=== PATIENT | male | born 1975 | race Caucasian/White ===

== ENCOUNTER 2018-09-11 13:38 | Emergency (ER) | payer OTHER ==
--- OUTSIDE RECORDS SUMMARY | 2018-09-11 13:45 | XMS REPORT ---
:1975 [facility] Team Providers Name Role Phone Sherri Zendejas Provider Role Unavailable Allergies, Adverse Reactions, Alerts Substance Reaction Event Type N.K.D.A. 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 Problem Benign essential HTN I10 Active Problem Erectile dysfunction, unspecified N52.9 Active erectile dysfunction type Problem Malaise and fatigue R53.81 Active Problem Seizure R56.9 Active Problem Insomnia G47.00 Active Problem Depression F32.9 Active Problem Decreased testosterone level in R79.89 Active male Problem Mixed hyperlipidemia E78.2 Active Assessment Fatigue, unspecified type R53.83 Active Problem Chronic sinusitis J32.9 Active Assessment Low testosterone R79.89 Active Problem Decreased libido R68.82 Active Medications Medication Code Code Instructions Start End Status Dosage System Date Date Trazodone HCl ND 17063959166 100 MG Orally Active 1 tablet Once a day at bedtime Pravastatin Sodium [facility] 67324432220 40 MG Orally Active 1 tablet Once a day Aspir-81 [facility] 32172679395 81 MG Orally Active 1 tablet Once a day Escitalopram Oxalate [facility] 08841299730 20MG Active TAKE ONE TABLET BY MOUTH ONCE DAILY Lexapro [facility] 90836584248 20 MG Orally Active 0.5 Once a day tablet Epitol [facility] 10845724360 200 MG Orally Active 1 tablet Twice a day Lamictal ND 62336269315 100 MG Orally Active 2 tablets Twice a day Lamotrigine [facility] 90083414633 100MG Active TAKE ONE TABLET BY MOUTH ONCE DAILY Hydrochlorothiazide ND 33516292546 25 MG Orally Active 1 tablet Once a day in the morning Metoprolol Tartrate ND 20274112187 25MG Active TAKE ONE TABLET BY MOUTH TWICE DAILY Metoprolol Tartrate [facility] 00040277699 25 MG Orally Active 1 tablet Twice a day with food Carbamazepine [facility] 92598711965 200 MG Orally Active 1 tablet Twice a day Results Name Result Date Reference Range Unit Abnormality Flag URINALYSIS AUTO W/O SCOPE (59754) ----JOSE neg 20180102 ----NIT neg 20180102 ----PROTEIN neg 20180102 ----pH 5.5 20180102 ----BLO neg 20180102 ----GLUCOSE neg 20180102 ----BILIRUBIN neg 20180102 ----KETONES 1+ 20180102 ----SPECIFIC GRAVITY 1.025 20180102 PVR ----PVR 17 20180102 Summary Purpose eClinicalWorks Submission
--- OUTSIDE RECORDS SUMMARY | 2018-09-11 13:45 | XMS REPORT ---
:1975 Author Organization eClinicalWorks Care Team Providers Name Role Phone Usama Curiel Provider Role Unavailable Allergies, Adverse Reactions, Alerts Substance Reaction Event Type N.K.D.A. 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 Problem Benign essential HTN I10 Active Assessment Seizure R56.9 Active Assessment Depression F32.9 Active Problem Erectile dysfunction, unspecified N52.9 Active erectile dysfunction type Assessment Erectile dysfunction N52.9 Active Problem Malaise and fatigue R53.81 Active Problem Seizure R56.9 Active Problem Insomnia G47.00 Active Problem Depression F32.9 Active Assessment Obstructive sleep apnea G47.33 Active Assessment Decreased libido R68.82 Active Assessment Trigeminal neuralgia G50.0 Active Assessment 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 Problem Decreased testosterone level in R79.89 Active male Problem Mixed hyperlipidemia E78.2 Active Assessment Decreased testosterone level in R79.89 Active male Assessment Benign essential HTN I10 Active Medications Medication Code Code Instructions Start End Status Dosage System Date Date Trazodone HCl ND 38131566086 100 MG Orally Active 1 tablet Once a day at bedtime Lexapro ND 20570565192 20 MG Orally Active 0.5 Once a day tablet Epitol [facility] 88683450497 200 MG Orally Active 1 tablet Twice a day Pravastatin Sodium ND 51055178843 40 MG Orally Active 1 tablet Once a day Escitalopram Oxalate [facility] 64884201942 20MG Active TAKE ONE TABLET BY MOUTH ONCE DAILY Metoprolol Tartrate ND 15417544211 25 MG Orally Active 1 tablet Twice a day with food Hydrochlorothiazide ND 74734254150 25 MG Orally Active 1 tablet Once a day in the morning Lamictal [facility] 30679166443 100 MG Orally Active 2 tablets Twice a day Carbamazepine [facility] 80103575497 200 MG Orally Active 1 tablet Twice a day -81 [facility] 71957577682 81 MG Orally Active 1 tablet Once a day Lamotrigine [facility] 51980118710 100MG Active TAKE ONE TABLET BY MOUTH ONCE DAILY Metoprolol Tartrate [facility] 47958461028 25MG Active TAKE ONE TABLET BY MOUTH TWICE DAILY Results No Known Results Summary Purpose eClinicalWorks Submission
--- OUTSIDE RECORDS SUMMARY | 2018-09-11 13:45 | XMS REPORT | Clinical Summary ---
:1975 Author Organization [facility] Address [address] [place] [address] Care Team Providers Name Role Phone Usama Curiel Primary Care Provider Allergies No Known Allergies Medications Medication Sig Dispensed Refills Start Date End Date Status hydroCHLOROthiazide Take 1 0 07/19/2016 Active (HYDRODIURIL) 25 MG tablet tablet by mouth daily. escitalopram (LEXAPRO) 20 Take 1 0 09/04/2016 Active MG tablet tablet by mouth daily. metoprolol tartrate Take 1 0 07/19/2016 Active (LOPRESSOR) 25 mg tablet tablet by mouth 2 (two) times a day. aspirin (ECOTRIN) 81 MG Take 81 mg 0 Active enteric coated tablet by mouth daily. lamoTRIgine (LaMICtal) 100 Take 100 mg 0 Active MG tablet by mouth daily. carBAMazepine (TEGretol) Take 200 mg 0 Active 200 mg tablet by mouth as needed. pravastatin (PRAVACHOL) 40 Take 40 mg 0 Active MG tablet by mouth daily. traZODone (DESYREL) 100 MG Take 1 90 tablet 3 03/03/2017 03/03/2018 tablet tablet (100 mg total) by mouth nightly. Active Problems Problem Noted Date Essential hypertension 09/11/2016 Pure hypercholesterolemia 09/11/2016 Mild cognitive impairment 09/11/2016 Trigeminal neuralgia 09/11/2016 H/O herpes encephalitis 09/05/2016 Seizure disorder 09/05/2016 Depressive disorder 09/05/2016 Cognitive disorder 09/05/2016 Encounters Date Type Specialty Care Team Description 03/19/2018 Office Visit Neurology Jared Carlos MD H/O herpes encephalitis (Primary Dx); Mild cognitive impairment; Seizure disorder; Trigeminal neuralgia; Depressive disorder 09/10/2017 Office Visit Neurology Jared Carlos MD H/O herpes encephalitis (Primary Dx); Mild cognitive impairment; Seizure disorder; Trigeminal neuralgia; Depressive disorder after 09/10/2017 Family History Medical History Relation Name Comments Hyperlipidemia Father Hypertension Father Lung cancer Father Glaucoma Mother Hypertension Mother Irritable bowel syndrome Mother Relation Name Status Comments Father Alive Mother Alive Social History Tobacco Use Types Packs/Day Years Used Date Former Smoker Cigarettes Smokeless Tobacco: Current User Snuff Comments: social smoker Alcohol Use Drinks/Week oz/Week Comments Yes 2 drinks / month Sex Assigned at Date Recorded Not on file Job Start Date Occupation Industry Not on file Not on file Not on file Travel History Travel Start Travel End No recent travel history available. Last Filed Vital Signs Vital Sign Reading Time Taken Blood Pressure 129/85 03/19/2018 1:15 PM CDT Pulse 59 03/19/2018 1:15 PM CDT Temperature - - Respiratory Rate - - Oxygen Saturation - - Inhaled Oxygen Concentration - - Weight 135 kg (297 lb 9.6 oz) 03/19/2018 1:15 PM CDT Height 182.9 cm (6') 03/19/2018 1:15 PM CDT Body Mass Index 40.36 03/19/2018 1:15 PM CDT Plan of Treatment Date Type Specialty Care Team Description 09/24/2018 Office Visit Neurology Jared Carlos MD [address] [address] Health Maintenance Due Date Last Done Comments INFLUENZA VACCINE 02/25/2018 Results Not on fileafter 09/10/2017 Insurance Payer Benefit Plan / Group Subscriber ID Type Phone Address [facility] xxxxxxxxx HMO ([place]) [place] [address] Advance Directives Patient has advance care planning documents on file. For more information, please contact:[place] [address]
--- OUTSIDE RECORDS SUMMARY | 2018-09-11 13:45 | XMS REPORT ---
:1975 [facility] Care Team Providers Name Role Phone Sherri [...] G47.00 Active Problem Depression F32.9 Active Assessment Fatigue, unspecified type R53.83 Active Problem Decreased testosterone level in R79.89 Active male Problem Mixed hyperlipidemia E78.2 Active Assessment Low testosterone R79.89 Active Problem Chronic sinusitis J32.9 Active Problem Decreased libido R68.82 Active Medications Medication Code Code Instructions Start End Status Dosage System Date Date Epitol [facility] 80776355077 200 MG Orally Active 1 tablet Twice a day Trazodone HCl [facility] 93349402844 100 MG Orally Active 1 tablet Once a day at bedtime Hydrochlorothiazide ND 07743257713 25 MG Orally Active 1 tablet Once a day in the morning Pravastatin Sodium [facility] 13572583285 40 MG Orally Active 1 tablet Once a day Lexapro [facility] 63633888582 20 MG Orally Active 0.5 Once a day tablet Lamictal ND 98628823572 100 MG Orally Active 2 tablets Twice a day Lamotrigine [facility] 48089630511 100MG Active TAKE ONE TABLET BY MOUTH ONCE DAILY Escitalopram Oxalate [facility] 38672734813 20MG Active TAKE ONE TABLET BY MOUTH ONCE DAILY Aspir-81 [facility] 44367777352 81 MG Orally Active 1 tablet Once a day Metoprolol Tartrate ND 45050916448 25MG Active TAKE ONE TABLET BY MOUTH TWICE DAILY Carbamazepine [facility] 07574591066 200 MG Orally Active 1 tablet Twice a day Results No Known Results Summary Purpose eClinicalWorks Submission
--- OUTSIDE RECORDS SUMMARY | 2018-09-11 13:45 | XMS REPORT ---
:1975 [facility] Care Team Providers Name Role Phone [...] Start End Status Dosage System Date Date Pravastatin Sodium ND 83534760440 40 MG Orally Active 1 tablet Once a day Epitol [facility] 64367402285 200 MG Orally Active 1 tablet Twice a day Hydrochlorothiazide ND 51643351294 25 MG Orally Active 1 tablet Once a day in the morning Lamotrigine [facility] 06951587398 100MG Active TAKE ONE TABLET BY MOUTH ONCE DAILY Lamictal ND 19251796056 100 MG Orally Active 2 tablets Twice a day Carbamazepine ND 02146823887 200 MG Orally Active 1 tablet Twice a day Metoprolol Tartrate ND 95156494788 25MG Active TAKE ONE TABLET BY MOUTH TWICE DAILY Aspir-81 [facility] 73215195383 81 MG Orally Active 1 tablet Once a day Escitalopram Oxalate [facility] 78686972559 20MG Active TAKE ONE TABLET BY MOUTH ONCE DAILY Lexapro ND 68581714429 20 MG Orally Active 0.5 Once a day tablet Trazodone HCl ND 61647707053 100 MG Orally Active 1 tablet Once a day at bedtime Results No Known Results Summary Purpose eClinicalWorks Submission
--- OUTSIDE RECORDS SUMMARY | 2018-09-11 13:46 | XMS REPORT ---
:1975 Author Organization eClinicalWorks Care Team Providers Name Role Phone MariposaSherri Provider Role Unavailable Allergies, Adverse Reactions, Alerts Substance Reaction Event Type N.K.D.A. 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 Problem Depression F32.9 Active Problem Malaise and fatigue R53.81 Active Problem Benign essential HTN I10 Active Problem Insomnia G47.00 Active Assessment Fatigue, unspecified type R53.83 Active Assessment Low testosterone R79.89 Active Problem Mixed hyperlipidemia E78.2 Active Problem Chronic sinusitis J32.9 Active Problem Decreased libido R68.82 Active Problem Decreased testosterone level in R79.89 Active male Problem Trigeminal neuralgia G50.0 Active Medications Medication Code Code Instructions Start End Status Dosage System Date Date Trazodone HCl [facility] 49046325027 100 MG Orally Active 1 tablet Once a day at bedtime Lexapro [facility] 71487078702 20 MG Orally Active 0.5 Once a day tablet Epitol [facility] 29298590075 200 MG Orally Active 1 tablet Twice a day Hydrochlorothiazide [facility] 56039135020 25 MG Orally Active 1 tablet Once a day in the morning Pravastatin Sodium [facility] 00704871499 40 MG Orally Active 1 tablet Once a day Hydrochlorothiazide [facility] 77321092459 25 MG Orally Active 1 tablet Once a day in the morning Aspir-81 [facility] 04683466415 81 MG Orally Active 1 tablet Once a day Escitalopram Oxalate [facility] 42219647951 20MG Active TAKE ONE TABLET BY MOUTH ONCE DAILY Lamictal [facility] 86519677433 100 MG Orally Active 1 tablet Once a day Carbamazepine [facility] 79905307122 200 MG Orally Active 1 tablet Twice a day Metoprolol Tartrate [facility] 76845928425 25 MG Orally Active 1 tablet Twice a day with food Results No Known Results Summary Purpose eClinicalWorks Submission
--- OUTSIDE RECORDS SUMMARY | 2018-09-11 13:46 | XMS REPORT ---
:1975 Author Organization eClinicalWorks Care Team Providers Name Role Phone CurielGerh Provider Role Unavailable Allergies, Adverse Reactions, Alerts Substance Reaction Event Type N.K.D.A. 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 Assessment Mixed hyperlipidemia E78.2 Active Assessment Insomnia G47.00 Active Problem 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 Assessment Trigeminal neuralgia G50.0 Active Problem Depression F32.9 Active Problem Malaise and fatigue R53.81 Active Problem Benign essential HTN I10 Active Problem Insomnia G47.00 Active Assessment Obstructive sleep apnea G47.33 Active Assessment Benign essential HTN I10 Active Assessment Depression F32.9 Active Assessment 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 Problem Mixed hyperlipidemia E78.2 Active Problem Chronic sinusitis J32.9 Active Problem Decreased testosterone level in R79.89 Active male Medications Medication Code Code Instructions Start End Status Dosage System Date Date Lamotrigine ND 03906992864 100MG Active TAKE ONE TABLET BY MOUTH ONCE DAILY Trazodone HCl ND 53904597705 100 MG Orally Active 1 tablet Once a day at bedtime Hydrochlorothiazide ND 10693829893 25 MG Orally Active 1 tablet Once a day in the morning Pravastatin Sodium ND 19987697200 40 MG Orally Active 1 tablet Once a day Metoprolol Tartrate ND 66093631673 25 MG Orally Active 1 tablet Twice a day with food Escitalopram Oxalate ND 54052003234 20MG Active TAKE ONE TABLET BY MOUTH ONCE DAILY Aspir-81 [facility] 18787439684 81 MG Orally Active 1 tablet Once a day Metoprolol Tartrate [facility] 01188847137 25MG Active TAKE ONE TABLET BY MOUTH TWICE DAILY Carbamazepine [facility] 74134450319 200 MG Orally Active 1 tablet Twice a day Lexapro [facility] 87674114544 20 MG Orally Active 0.5 Once a day tablet Epitol [facility] 84282313540 200 MG Orally Active 1 tablet Twice a day Hydrochlorothiazide [facility] 13021089433 25 MG Orally Active 1 tablet Once a day in the morning Lamictal [facility] 97752208845 100 MG Orally Active 2 tablets Twice a day Results No Known Results Summary Purpose eClinicalWorks Submission
--- OUTSIDE RECORDS SUMMARY | 2018-09-11 13:46 | XMS REPORT ---
:1975 Author Organization eClinicalWorks Care Team Providers Name Role Phone Usama Curiel Provider Role Unavailable Allergies No Known Allergies Problems Problem Type Condition Code Onset Dates [...] HTN I10 Active Problem Insomnia G47.00 Active Problem Mixed hyperlipidemia E78.2 Active Problem Chronic sinusitis J32.9 Active Problem Decreased libido R68.82 Active Problem Decreased testosterone level in R79.89 Active male Problem Trigeminal neuralgia G50.0 Active Medications Medication Code Code Instructions Start End Status Dosage System Date Date Carbamazepine [facility] 49601382088 200 MG Orally Active 1 tablet Twice a day Lamotrigine [facility] 71193737863 100MG Active TAKE ONE TABLET BY MOUTH ONCE DAILY Hydrochlorothiazide [facility] 61684506514 25 MG Orally Active 1 tablet Once a day in the morning Pravastatin Sodium [facility] 91751142874 40 MG Orally Active 1 tablet Once a day Epitol [facility] 74427850182 200 MG Orally Active 1 tablet Twice a day Lexapro [facility] 59967881404 20 MG Orally Active 0.5 Once a day tablet Lamictal [facility] [address]-82 100 MG Orally Active 1 tablet Once a day Metoprolol Tartrate ND 05441671837 25 MG Orally Active 1 tablet Twice a day with food Escitalopram Oxalate [facility] 03928333208 20MG Active TAKE ONE TABLET BY MOUTH ONCE DAILY Hydrochlorothiazide [facility] 46321022792 25 MG Orally Active 1 tablet Once a day in the morning Trazodone HCl ND 83278791999 100 MG Orally Active 1 tablet Once a day at bedtime [facility] 14983452153 81 MG Orally Active 1 tablet Once a day Metoprolol Tartrate [facility] 34997254545 25MG Active TAKE ONE TABLET BY MOUTH TWICE DAILY Results No Known Results Summary Purpose eClinicalWorks Submission
--- NOTE | 2018-09-11 15:53 | EDPHYS ---
Physician Documentation [facility] Name: David Baker Age: 43 yrs Sex: Male : 1975 Arrival Date: 09/11/2018 Time: 13:39 Bed 11 Private MD: [facility] ED Physician Ben Marcum HPI: 09/11 15:50 This 43 yrs old Male presents to ER via Ambulatory with complaints of Right pm1 Ankle Injury. 15:50 The patient presents with Pain to Achilles area. The complaints affect the right pm1 Achilles. Onset: The symptoms/episode began/occurred 2 day(s) ago. Context: The problem was sustained outdoors, resulted from playing - running with children, The patient can fully bear weight on the affected extremity. the patient is able to ambulate. Associated signs and symptoms: Pertinent positives: swelling, Pertinent negatives: calf tenderness, fever, numbness, tingling, warmth. Modifying factors: The symptoms are alleviated by nothing, the symptoms are aggravated by weight bearing, movement. Severity of symptoms: in the emergency department the symptoms are unchanged. The patient has not experienced similar symptoms in the past. The patient has not recently seen a physician. 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 ROS: 15:50 Constitutional: Negative for fever, chills, and weight loss, Eyes: Negative for injury, pm1 pain, redness, and discharge, ENT: Negative for injury, pain, and discharge, Neck: Negative for injury, pain, and swelling, Cardiovascular: Negative for chest pain, palpitations, and edema, Respiratory: Negative for shortness of breath, cough, wheezing, and pleuritic chest pain, Abdomen/GI: Negative for abdominal pain, nausea, vomiting, diarrhea, and constipation, Back: Negative for injury and pain, : Negative for injury, bleeding, discharge, and swelling. 15:50 Skin: Negative for injury, rash, and discoloration, Neuro: Negative for headache, weakness, numbness, tingling, and seizure. 15:50 MS/extremity: Positive for pain, of the right Achilles, Negative for decreased range of motion, deformity. Exam: 15:50 Constitutional: This is a well developed, well nourished patient who is awake, alert, pm1 and in no acute distress. Head/Face: Normocephalic, atraumatic. Chest/axilla: Normal chest wall appearance and motion. Nontender with no deformity. No lesions are appreciated. Cardiovascular: Regular rate and rhythm with a normal S1 and S2. No gallops, murmurs, or rubs. Normal PMI, no JVD. No pulse deficits. Respiratory: Lungs have equal breath sounds bilaterally, clear to auscultation and percussion. No rales, rhonchi or wheezes noted. No increased work of breathing, no retractions or nasal flaring. Back: No spinal tenderness. No costovertebral tenderness. Full range of motion. Skin: Warm, dry with normal turgor. Normal color with no rashes, no lesions, and no evidence of cellulitis. 15:50 Musculoskeletal/extremity: Extremities: grossly normal except: noted in the right Achilles: tenderness, mild swelling, There is no evidence of decreased ROM, deformity. 15:50 Neuro: Orientation: is normal, Motor: is normal, moves all fours, strength is normal, strength is 5/5 in all extremities. Vital Signs: 13:51 BP 155 / 92; Pulse 82; Resp 18; Temp 98; Pulse Ox 98% ; Weight 136.08 kg; Height 6 ft. sv 2 in. (187.96 cm); Pain 7/10; 13:51 Body Mass Index 38.52 (136.08 kg, 187.96 cm) sv MDM: 15:30 Patient medically screened. pm1 15:50 Data reviewed: vital signs. Data interpreted: Pulse oximetry: on room air is 98 %. pm1 Interpretation: normal. Counseling: I had a detailed discussion with the patient and/or guardian regarding: the historical points, exam findings, and any diagnostic results supporting the discharge/admit diagnosis, radiology results, the need for outpatient follow up, to return to the emergency department if symptoms worsen or persist or if there are any questions or concerns that arise at home. 15:50 ED course: Patient offered pain medications. Patient refused, said he will just take pm1 ibuprofen or OTC medications. Does not want anymore prescription medications. 09/11 13:52 Order name: Ankle Right 3 View XRAY; Complete Time: 16:05 Administered Medications: No medications were administered Disposition: 09/11/18 15:51 Discharged to Home. Impression: Unspecified injury of right Achilles tendon. - Condition is Stable. - Discharge Instructions: Achilles Tendinitis, Walking Boot. - Medication Reconciliation Form, Thank You Letter form. - Follow up: Emergency Department; When: As needed; Reason: Worsening of condition. Follow up: Private Physician; When: 2 - 3 days; Reason: Recheck today's complaints, Continuance of care, Re-evaluation by your physician. - Problem is new. - Symptoms have improved. Addendum: 09/14/2018 05:30 Co-signature as Attending Physician, Ben Marcum MD I agree with the assessment and c peterson plan of care. Signatures: Dispatcher [employer] Shanita Dao, RN Ben Agosto MD MD cha Calderon, Audri, RN RN aa5 Daniel Paez, ACTIVE DIRECTORY ADMINISTRATOR ACTIVE DIRECTORY ADMINISTRATOR pm1 Corrections: (The following items were deleted from the chart) 09/11 15:52 15:51 09/11/2018 15:51 Discharged to Home. Impression: Strain of right Achilles tendon. pm1 Condition is Stable. Forms are Medication Reconciliation Form, Thank You Letter, Antibiotic Education, Prescription Opioid Use. Follow up: Emergency Department; When: As needed; Reason: Worsening of condition. Follow up: Private Physician; When: 2 - 3 days; Reason: Recheck today's complaints, Continuance of care, Re-evaluation by your physician. Problem is new. Symptoms have improved. pm1 16:13 15:50 Walking boot ordered. pm1 aa5 16:13 15:52 09/11/2018 15:51 Discharged to Home. Impression: Unspecified injury of right aa5 Achilles tendon. Condition is Stable. Discharge Instructions: Achilles Tendinitis. Forms are Medication Reconciliation Form, Thank You Letter. Follow up: Emergency Department; When: As needed; Reason: Worsening of condition. Follow up: Private Physician; When: 2 - 3 days; Reason: Recheck today's complaints, Continuance of care, Re-evaluation by your physician. Problem is new. Symptoms have improved. pm1
--- NOTE | 2018-09-11 15:53 | ER ---
Nurse's Notes [facility] Name: David Baker Age: 43 yrs Sex: Male : 1975 Arrival Date: 09/11/2018 Time: 13:39 Bed 11 Private MD: Usama Curiel Diagnosis: Unspecified injury of right Achilles tendon Presentation: 09/11 13:50 Presenting complaint: Patient states: right ankle/Achilles' pain started 2 days ago. sv Transition of care: patient was not received from another setting of care. Onset of symptoms was September 09, 2018. Care prior to arrival: None. 13:50 Method Of Arrival: Ambulatory sv 13:50 Acuity: REED 4 sv 14:30 Initial Sepsis Screen: Does the patient meet any 2 criteria? No. Patient's initial aa5 sepsis screen is negative. Does the patient have a suspected source of infection? No. Patient's initial sepsis screen is negative. 14:30 Risk Assessment: Do you want to hurt yourself or someone else? Patient reports no aa5 desire to harm self or others. Triage Assessment: 13:53 General: Appears in no apparent distress. uncomfortable, Behavior is calm, cooperative, sv appropriate for age. Pain: Complains of pain in right Achilles Pain currently is 7 out of 10 on a pain scale. Neuro: Level of Consciousness is awake, alert, obeys commands, Oriented to person, place, time, situation, Moves all extremities. Respiratory: Respiratory effort is even, unlabored, Respiratory pattern is regular, symmetrical. 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 Screenin:30 Abuse screen: Denies threats or abuse. Nutritional screening: No deficits noted. aa5 Tuberculosis screening: No symptoms or risk factors identified. Fall Risk None identified. Assessment: 14:30 General: Appears comfortable, Behavior is calm, cooperative. Pain: Complains of pain in aa5 right Achilles. Neuro: Level of Consciousness is awake, alert, obeys commands, Oriented to person, place, time, situation. Cardiovascular: No deficits noted. Respiratory: Airway is patent Respiratory effort is even, unlabored, Respiratory pattern is regular, symmetrical. GI: No signs and/or symptoms were reported involving the gastrointestinal system. : No signs and/or symptoms were reported regarding the genitourinary system. EENT: No signs and/or symptoms were reported regarding the EENT system. Derm: Skin is pink, warm \T\ dry. Musculoskeletal: Range of motion: intact in all extremities. 16:12 Reassessment: Patient is alert, oriented x 3, equal unlabored respirations, skin aa5 warm/dry/pink. Vital Signs: 13:51 BP 155 / 92; Pulse 82; Resp 18; Temp 98; Pulse Ox 98% ; Weight 136.08 kg; Height 6 ft. sv 2 in. (187.96 cm); Pain 7/10; 13:51 Body Mass Index 38.52 (136.08 kg, 187.96 cm) sv ED Course: 13:39 Patient arrived in ED. mr 13:41 Usama Curiel DO is Private Physician. mr 13:50 Triage completed. sv 13:52 Arm band placed on. sv 14:12 Ankle Right 3 View XRAY In Process Unspecified. EDMS 14:30 Patient has correct armband on for positive identification. aa5 15:29 Daniel Paez NP is PHCP. pm1 15:30 Ben Marcum MD is Attending Physician. pm1 15:36 Taylor Dietrich RN is Primary Nurse. aa5 16:13 No provider procedures requiring assistance completed. Patient did not have IV access aa5 during this emergency room visit. Administered Medications: No medications were administered Outcome: 15:51 Discharge ordered by MD. pm1 16:12 Discharged to home ambulatory. aa5 16:12 Condition: stable 16:12 Discharge instructions given to patient, Instructed on discharge instructions, follow up and referral plans. Demonstrated understanding of instructions, follow-up care. 16:13 Patient left the ED. aa5 Signatures: Dispatcher [employer] EDMS Shanita Jamil RN RN sv Rivera, Mary mr Taylor Dietrich RN RN aa5 Daniel Paez NP FRONT DESK ASSISTANT pm1 Corrections: (The following items were deleted from the chart) 13:53 13:51 Pulse 82bpm; Resp 18bpm; Pulse Ox 98%; Temp 98F; 136.08 kg; Height 6 ft. 2 in.; sv BMI: 38.5; Pain 7/10; sv : 16:30 No provider procedures requiring assistance completed. aa5 aa5 16:30 Patient did not have IV access during this emergency room visit. aa5 aa5
--- NOTE | 2018-09-11 16:01 | RAD REPORT ---
EXAM DESCRIPTION: RAD - Ankle Right 3 View - 09/11/2018 2:12 pm CLINICAL HISTORY: Ankle pain COMPARISON: None. FINDINGS: No fracture, dislocation or periosteal reaction. No joint effusion seen. No joint space na rrowing. Anterior and lateral soft tissue swelling is present. Minimal plantar spur. IMPRESSION: Soft tissue swelling with no acute right ankle bone finding.
== END 2018-09-11 16:13 | disposition home or self-care (01) ==
LOC: ER 13:38
DX: S86.001A Unspecified injury of right Achilles tendon, initial encounter (principal)
CPT/HCPCS: 99283

== ENCOUNTER 2019-06-29 14:49 | Emergency (ER) | payer OTHER ==
--- OUTSIDE RECORDS SUMMARY | 2019-06-29 14:51 | XMS REPORT ---
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
[2019-06-29 15:27] LABS: Protime INR 0.95
[2019-06-29 15:38] LABS: BUN Blood Urea Nitrogen 19 mg/dL (7-18); Bicarbonate 29 mmol/L (21-32); Glucose Level 99 mg/dL (74-106); Potassium 4.2 mmol/L (3.5-5.1); Sodium Level 140 mmol/L (136-145); Troponin (Emerg Dept Use Only) < 0.02 ng/mL (0.0-0.045)
--- NOTE | 2019-06-29 15:38 | RAD REPORT ---
EXAM DESCRIPTION: CT - Head C Spine Mpr Wo Con - 06/29/2019 3:20 pm CLINICAL HISTORY: Syncope Head and neck injury status post fall. Head and neck pain COMPARISON: None. TECHNIQUE: Computed axial tomography of the head and cervical spine was obtained. Sagittal and coronal reconstruction was performed. All CT scans are performed using dose optimization technique as appropriate and may include automated exposure control or mA/KV adjustment according to patient size. FINDINGS: A 5.2 centimeter low-density fluid collection is present within the left temporal fossa. L ittle normal appearing left temporal lobe tissue is seen An acute intracranial bleed is not seen. The ventricles are normal in caliber.Fluid within the visua lized sinuses and mastoids is not seen. Right occipital craniectomy has been performed. An acute cervical fracture is not visualized. No dislocation is noted. Bony density adjacent to the p osterior spinous process of T1 probably is the sequela of an old fracture. Spondylosis involves the c ervical spine IMPRESSION: 5.2 centimeter low-density fluid collection within the left temporal fossa presumably ei ther an arachnoid cyst or cystic encephalomalacia secondary to old infarction. Comparison with prior head CT would be helpful. Alternatively, a nonemergent brain MRI with contrast could be obtained A cervical fracture is not visualized.
[2019-06-29 15:45] LABS: Absolute Lymphocytes (CBC) 2.1 K/uL (0.7-4.9); Basophils % 0.4 % (0-1.3); Hematocrit 46.5 % (39.6-49.0); Lymphocytes % 23.2 % (15.3-44.8); MPV 9.6 fL (7.6-11.3); RBC Red Blood Cell Count 5.19 M/uL (4.33-5.43)
--- NOTE | 2019-06-29 16:33 | RAD REPORT ---
EXAM DESCRIPTION: Richie Single View06/29/2019 4:26 pm CLINICAL HISTORY: seizure COMPARISON: none FINDINGS: The lungs appear clear of acute infiltrate. The heart is normal size IMPRESSION: No acute abnormalities displayed
--- NOTE | 2019-06-29 17:45 | ER ---
Nurse's Notes [facility] Name: David Baker Age: 43 yrs Sex: Male : 1975 Arrival Date: 06/29/2019 Time: 14:57 Bed 4 Private MD: Diagnosis: Epilepsy and recurrent seizures Presentation: 06/29 14:47 Presenting complaint: EMS states: daughter called EMS stated she heard a loud crash sv where her father was, went to check on him and he was laying on the floor and he was blue. On EMS arrival pt was found laying on his right side on the floor with the chair tipped over and his face was purple. 92% RA, tachycardic. Transition of care: patient was not received from another setting of care. Onset of symptoms was June 29, 2019. Risk Assessment: Do you want to hurt yourself or someone else? Patient reports no desire to harm self or others. Care prior to arrival: IV initiated. 20 GA, in the right antecubital area, Glucose check: 103. 14:47 Method Of Arrival: EMS: [facility] sv 14:47 Acuity: REED 3 sv 15:05 Initial Sepsis Screen: Does the patient meet any 2 criteria? No. Patient's initial sv sepsis screen is negative. Does the patient have a suspected source of infection? No. Patient's initial sepsis screen is negative. Triage Assessment: 14:50 General: Appears in no apparent distress. comfortable, well developed, Behavior is sv calm, cooperative, appropriate for age. Pain: Denies pain. Neuro: Level of Consciousness is awake, alert, obeys commands, Oriented to person, place, time, situation, Moves all extremities. Full function Speech is normal, Facial symmetry appears normal. Cardiovascular: Patient's skin is warm and dry. Rhythm is sinus rhythm. Respiratory: Airway is patent Respiratory effort is even, unlabored, Respiratory pattern is regular, symmetrical. Derm: Skin is pink, warm \T\ dry. Historical: - Allergies: 15:04 No Known Allergies; sv - Home Meds: 15:04 lamotrigine 100 mg oral TbDL 1 tab 2 times per day [Active]; metoprolol tartrate 25 mg sv Oral tab 1 tab 2 times per day [Active]; pravastatin 40 mg oral tab 1 tab once daily [Active]; trazodone 100 mg Oral tab nightly [Active]; Lexapro 20 mg Oral tab 1 tab once daily [Active]; hydrochlorothiazide 25 mg Oral tab 1 tab once daily [Active]; rosuvastatin 10 mg oral tab 1 tab once daily [Active]; Epitol 200 mg oral tab 1 tab every 12 hours [Active]; One-A-Day Essential oral tab [Active]; super B [Active]; - PMHx: 15:04 encephalitis; meningitis; Seizures; 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 - Family history:: not pertinent. - Ebola Screening: : No symptoms or risks identified at this time. - Social history:: Smoking status: Patient/guardian denies using tobacco. - Hospitalizations: : No recent hospitalization is reported. Screenin:05 Abuse screen: Denies threats or abuse. Denies injuries from another. Nutritional sv screening: No deficits noted. Tuberculosis screening: No symptoms or risk factors identified. Fall Risk None identified. Assessment: 15:50 Reassessment: Patient appears in no apparent distress at this time. No changes from sv previously documented assessment. Patient and/or family updated on plan of care and expected duration. Pain level reassessed. Family at the bedside. 17:10 Reassessment: Patient appears in no apparent distress at this time. No changes from sv previously documented assessment. Patient and/or family updated on plan of care and expected duration. Pain level reassessed. Dr Richards at the bedside speaking with the family regarding POC. Vital Signs: 15:00 BP 120 / 64; Pulse 78; Resp 17; Temp 97; Pulse Ox 95% ; Weight 136 kg; Height 6 ft. 0 sv in. (182.88 cm); Pain 0/10; 15:37 BP 127 / 77; Pulse 73; Resp 16; Pulse Ox 98% on R/A; sv 16:33 BP 118 / 93; Pulse 65; Resp 18; Pulse Ox 95% ; sv 17:09 BP 134 / 83; Pulse 63; Resp 18; Pulse Ox 97% ; sv 15:00 Body Mass Index 40.66 (136.00 kg, 182.88 cm) sv Kenny Coma Score: 14:50 Eye Response: spontaneous(4). Verbal Response: oriented(5). Motor Response: obeys sv commands(6). Total: 15. ED Course: 14:47 Maintain EMS IV. Dressing intact. Site clean \T\ dry. Gauge \T\ site: 20G R AC. sv 14:57 Patient arrived in ED. sv 14:57 Shanita Jamil, RN is Primary Nurse. sv 14:59 Rod Richards MD is Attending Physician. rn 15:00 lay out machine operator on. Pulse ox on. NIBP on. sv 15:01 Triage completed. sv 15:04 Arm band placed on. sv 15:05 Patient has correct armband on for positive identification. Bed in low position. Call sv light in reach. Side rails up X2. Seizure precautions initiated. 15:11 EKG done, by ED staff, reviewed by Rod Richards MD. sv 15:[address] via stretcher. sv 15:21 CT Head C Spine In Process Unspecified. EDMS 15:50 Awaiting for x-ray. sv 15:58 X-ray(s) taken. sv 16:09 Awaiting radiology results. sv 16:26 XRAY Chest (1 view) In Process Unspecified. EDMS 18:01 No provider procedures requiring assistance completed. IV discontinued, intact, ss bleeding controlled, No redness/swelling at site. Pressure dressing applied. Administered Medications: No medications were administered Outcome: 17:44 Discharge ordered by . rn 18:01 Discharged to home ambulatory. ss 18:01 Condition: good 18:01 Discharge instructions given to patient, family, Instructed on discharge instructions, follow up and referral plans. Demonstrated understanding of instructions, follow-up care, medications. 18:03 Patient left the ED. ss Signatures: Dispatcher [employer] EDNH Shanita Jamil, ASHLEY RAMIREZ Rod Richards MD MD rn Smirch, Shelby, RN RN ss Corrections: (The following items were deleted from the chart) 15:53 15:00 BP 120 / 64; Pulse 78bpm; Resp 17bpm; Pulse Ox 95%; Temp 97F; Pain 0/10; sv sv
--- NOTE | 2019-06-29 17:46 | EDPHYS ---
Physician Documentation [facility] Name: David Baker Age: 43 yrs Sex: Male : 1975 Arrival Date: 06/29/2019 Time: 14:57 Bed 4 Private MD: ED Physician Rod Richards HPI: 06/29 15:26 This 43 yrs old Male presents to ER via EMS with complaints of Probable rn Seizure. 15:26 The patient presents after having a possible seizure episode. Character of seizure(s): rn Loss of consciousness: it is not known if the patient experienced loss of consciousness, Motor activity: the motor activity is unknown, Incontinence: none. Associated injury: The patient did not suffer any apparent associated injury. Current symptoms: confusion. The patient has experienced a previous episode. Family reports heard a crash, went to see patient, found on floor, assumed to have fallen from chair, no shaking, seemed confused and flushed, no cyanosis, was foaming at mouth, had bitten tongue. 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 Takes lamictal, but states his neurologist was recently talking about taking him off seizure meds because had not had one recently. Denies recent illness/chest pain/sob/abd pain/vomiting/diarrhea. No rash. Patient has no recollection of even going to work today. Currently states "feels fine".. Historical: - Allergies: 15:04 No Known Allergies; sv - Home Meds: 15:04 lamotrigine 100 mg oral TbDL 1 tab 2 times per day [Active]; metoprolol tartrate 25 mg sv Oral tab 1 tab 2 times per day [Active]; pravastatin 40 mg oral tab 1 tab once daily [Active]; trazodone 100 mg Oral tab nightly [Active]; Lexapro 20 mg Oral tab 1 tab once daily [Active]; hydrochlorothiazide 25 mg Oral tab 1 tab once daily [Active]; rosuvastatin 10 mg oral tab 1 tab once daily [Active]; Epitol 200 mg oral tab 1 tab every 12 hours [Active]; One-A-Day Essential oral tab [Active]; super B [Active]; - PMHx: 15:04 encephalitis; meningitis; Seizures; 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 - Family history:: not pertinent. - Ebola Screening: : No symptoms or risks identified at this time. - Social history:: Smoking status: Patient/guardian denies using tobacco. - Hospitalizations: : No recent hospitalization is reported. ROS: 15:26 Constitutional: Negative for fever, chills, and weight loss, Eyes: Negative for injury, rn pain, redness, and discharge, Cardiovascular: Negative for chest pain, palpitations, and edema, Respiratory: Negative for shortness of breath, cough, wheezing, and pleuritic chest pain, Abdomen/GI: Negative for abdominal pain, nausea, vomiting, diarrhea, and constipation, MS/Extremity: Negative for injury and deformity, Skin: Negative for injury, rash, and discoloration, Neuro: Negative for headache, weakness, numbness, tingling Exam: 15:26 Constitutional: This is a well developed, well nourished patient who is awake, alert, rn and in no acute distress. Head/Face: Normocephalic, atraumatic. Eyes: Pupils equal round and reactive to light, extra-ocular motions intact. Lids and lashes normal. Conjunctiva and sclera are non-icteric and not injected. Cornea within normal limits. Periorbital areas with no swelling, redness, or edema. ENT: + tongue contusion without laceration or active bleeding. Neck: Trachea midline, no thyromegaly or masses palpated, and no cervical lymphadenopathy. Supple, full range of motion without nuchal rigidity, or vertebral point tenderness. No Meningismus. Cardiovascular: Regular rate and rhythm. No pulse deficits. Respiratory: No increased work of breathing, no retractions or nasal flaring. Abdomen/GI: soft, non-tender MS/ Extremity: Pulses equal, no cyanosis. Neurovascular intact. Full, normal range of motion. Equal circumference. Neuro: Awake and alert, GCS 15, oriented to person, place, not time. Cranial nerves II-XII grossly intact. Motor strength 5/5 in all extremities. Sensory grossly intact. Cerebellar exam normal. Vital Signs: 15:00 BP 120 / 64; Pulse 78; Resp 17; Temp 97; Pulse Ox 95% ; Weight 136 kg; Height 6 ft. 0 sv in. (182.88 cm); Pain 0/10; 15:37 BP 127 / 77; Pulse 73; Resp 16; Pulse Ox 98% on R/A; sv 16:33 BP 118 / 93; Pulse 65; Resp 18; Pulse Ox 95% ; sv 17:09 BP 134 / 83; Pulse 63; Resp 18; Pulse Ox 97% ; sv 15:00 Body Mass Index 40.66 (136.00 kg, 182.88 cm) sv Maybeury Coma Score: 14:50 Eye Response: spontaneous(4). Verbal Response: oriented(5). Motor Response: obeys sv commands(6). Total: 15. MDM: 14:59 Patient medically screened. rn 17:27 Differential diagnosis: cardiac arrhythmia, seizure, TIA. Data reviewed: vital signs, rn nurses notes, lab test result(s), EKG, radiologic studies, CT scan. 17:41 Counseling: I had a detailed discussion with the patient and/or guardian regarding: the rn historical points, exam findings, and any diagnostic results supporting the discharge/admit diagnosis, lab results, radiology results, the need for outpatient follow up, to return to the emergency department if symptoms worsen or persist or if there are any questions or concerns that arise at home. Response to treatment: the patient's symptoms have markedly improved after treatment, the patient's symptoms have resolved after treatment, the patient's condition has returned to base line, the patient is now symptom free, patient is well hydrated. and as a result, I will discharge patient. Special discussion: I discussed with the patient/guardian in detail that at this point there is no indication for admission to the hospital. It is understood, however, that if the symptoms persist or worsen the patient needs to return immediately for re-evaluation. Based on the history and exam findings, there is no indication for further emergent testing or inpatient evaluation. I discussed with the patient/guardian the need to see the neurologist for further evaluation of the symptoms. ED course: Consulted with Dr. Alas, states sounds like seizure, has known seizure disorder, and recommends dc home with increasing lamictal to 1.5 tabs daily from 1 tab daily and neuro f/u. Had long discussion with family, offered observation vs Kenneth Alas's plan, they choose to go home and increase lamictal, will call his neurologist tomorrow, return precautions given and understood. Entire family comfortable with plan. Entirely back to baseline, neg ecg and trop. No other etiology found and seizure favored due to presentation, hx, and bitten tongue. . 06/29 15:00 Order name: Basic Metabolic Panel; Complete Time: 16:27 rn 06/29 15:00 Order name: CBC with Diff rn 06/29 15:00 Order name: Magnesium; Complete Time: 16:27 rn 06/29 15:00 Order name: Protime (+inr); Complete Time: 16:27 rn 06/29 15:00 Order name: Ptt, Activated; Complete Time: 16:27 rn 06/29 15:00 Order name: Troponin (emerg Dept Use Only); Complete Time: 16:27 rn 06/29 15:00 Order name: CT Head C Spine; Complete Time: 16: rn 06/29 15:00 Order name: EKG; Complete Time: 15: rn 06/29 15:00 Order name: Cardiac monitoring; Complete Time: 15:07 rn 06/29 15:00 Order name: EKG - Nurse/Tech; Complete Time: 15: rn 06/29 15:00 Order name: IV Saline Lock; Complete Time: 15: rn 06/29 15:00 Order name: Labs collected and sent; Complete Time: 15: rn 06/29 15:23 Order name: Glucose, Ancillary Testing; Complete Time: 15:33 EDNH 06/29 15:33 Order name: XRAY Chest (1 view); Complete Time: 17:02 rn 06/29 15:00 Order name: NPO; Complete Time: 15: rn 06/29 15:00 Order name: O2 Per Protocol; Complete Time: 15: rn 06/29 15:00 Order name: O2 Sat Monitoring; Complete Time: 15:07 rn Administered Medications: No medications were administered Disposition: 06/29/19 17:44 Discharged to Home. Impression: Epilepsy and recurrent seizures. - Condition is Stable. - Discharge Instructions: Seizure, Adult. - Medication Reconciliation Form, Thank You Letter, Antibiotic Education, Prescription Opioid Use form. - Follow up: Private Physician; When: 2 - 3 days; Reason: Recheck today's complaints, Re-evaluation by your physician. - Problem is new. - Symptoms have improved. Signatures: Dispatcher [employer] Shanita Dao RN RN sv Nieto, Roman, MD MD rn Smirch, Tali, RN RN ss Corrections: (The following items were deleted from the chart) 18:03 17:44 06/29/2019 17:44 Discharged to Home. Impression: Epilepsy and recurrent seizures. ss Condition is Stable. Forms are Medication Reconciliation Form, Thank You Letter, Antibiotic Education, Prescription Opioid Use. Follow up: Private Physician; When: 2 - 3 days; Reason: Recheck today's complaints, Re-evaluation by your physician. Problem is new. Symptoms have improved. rn
[2019-06-29 19:00] VITALS: BP 134/83; O2SAT 97
[2019-06-29 19:42] LABS: Blood Morphology Comment NOT SEEN (NOT SEEN); Platelet Estimate ADEQ; Urine White Blood Cell Casts OK
[2019-06-29 20:48] VITALS: TEMP 97
--- NOTE | 2019-06-30 06:21 | EKG ---
Test Date: 2019-06-29 Test Time: 15:11:10 Finishing Pan Operator: LIZBET MEASUREMENT RESULTS: Intervals: Rate: 70 WI: 134 QRSD: 100 QT: 384 QTc: 414 [place]: P: 50 WI: 134 QRS: -10 T: 47 INTERPRETIVE STATEMENTS: Normal sinus rhythm Normal ECG No previous ECG available for comparison Electronically Signed On 06-30-19 06:20:14 SENIOR CONSTRUCTION PROJECT MANAGER by Kvng Shaffer
== END 2019-06-29 18:03 | disposition home or self-care (01) ==
LOC: ER 14:49
DX: G40.909 Epilepsy, unspecified, not intractable, without status epilepticus (principal)
CPT/HCPCS: 36415; 70450; 71045; 72125; 80048; 82947; 83735; 84484; 85025; 85610; 85730; 93005; 99285

== ENCOUNTER 2019-06-30 18:53 | Inpatient (IN) | payer OTHER ==
[2019-06-30] MEDS ORDERED: MIDAZOLAM HCL 2 MG/2 ML INJ ONE ×3 (19:15→20:05)
[2019-06-30 19:31] LABS: Absolute Lymphocytes (CBC) 3.3 K/uL (0.7-4.9); Basophils % 0.5 % (0-1.3); Hematocrit 48.9 % (39.6-49.0); Lymphocytes % 27.3 % (15.3-44.8); MPV 10.1 fL (7.6-11.3); RBC Red Blood Cell Count 5.37 M/uL (4.33-5.43)
[2019-06-30 19:35] LABS: Protime INR 0.96
[2019-06-30] MEDS ORDERED: PROPOFOL 200 MG/20 ML VIAL IV ONE (19:35)
[2019-06-30 19:42] LABS: ALT/SGPT 79 U/L (12-78); AST/SGOT 59 U/L (15-37); Alkaline Phosphatase 93 U/L (45-117); BUN Blood Urea Nitrogen 20 mg/dL (7-18); Bicarbonate 22 mmol/L (21-32); Bilirubin Direct 0.2 mg/dL (0-0.2); Bilirubin Total 0.7 mg/dL (0.2-1.0); Glucose Level 109 mg/dL (74-106); Potassium 4.1 mmol/L (3.5-5.1); Protein, Total 7.9 g/dL (6.4-8.2); Sodium Level 142 mmol/L (136-145)
[2019-06-30 19:45] LABS: Urine Blood 2+ (NEG); Urine Glucose NEGATIVE (NEG); Urine Protein 3+ (NEG); Urine Specific Gravity >1.030 (1.005-1.030)
[2019-06-30 19:53] LABS: Barbiturates NEGATIVE (NEGATIVE); Benzodiazepines POSITIVE (NEGATIVE); Cocaine NEGATIVE (NEGATIVE); METHAMPHETAM NEGATIVE (NEGATIVE); Methadone NEGATIVE (NEGATIVE); Opiates NEGATIVE (NEGATIVE); Phencyclidine NEGATIVE (NEGATIVE); THC Cannibis NEGATIVE (NEGATIVE)
--- NOTE | 2019-06-30 19:57 | RAD REPORT ---
EXAM DESCRIPTION: CT - [id number] - 06/30/2019 7:46 pm CLINICAL HISTORY: Trauma, head and neck injury. SEIZURE COMPARISON: Head C Spine Mpr Wo Con dated 06/29/2019 TECHNIQUE: Axial 5 mm thick images of the head were obtained. Axial 2 mm thick images of the cervical spine were obtained with sagittal and coronal reconstruction images generated and reviewed. All CT scans are performed using dose optimization technique as appropriate and may include automated exposure control or mA/KV adjustment according to patient size. FINDINGS: CT HEAD WITHOUT CONTRAST: No acute hemorrhage, hydrocephalus or extra-axial collection is identified.Encephalomalacia seen in t he left temporal lobe, unchanged. The paranasal sinuses and mastoids are clear.Right posterior fossa craniotomy changes. No acute mir rial fracture. CT CERVICAL SPINE WITHOUT CONTRAST: No fracture or subluxation.No prevertebral soft tissues swelling is identified. IMPRESSION: No acute intracranial or cervical spine findings.
[2019-06-30] MEDS ORDERED: NA CHLORIDE 0.9% 50 ML ONE (20:05)
[2019-06-30] MEDS ORDERED: NA CHLORIDE 0.9% 1,000 ML ONE (20:07)
[2019-06-30] MEDS ORDERED: LEVETIRACETAM 500 MG/5 ML VIAL IV ONE (21:09)
[2019-06-30] MEDS ORDERED: NA CHLORIDE 0.9% 100 ML IV ONE (21:10)
[2019-06-30] MEDS ORDERED: NA CHLORIDE 0.9% 500 ML ONE (21:13)
[2019-06-30 21:22] LABS: Urine Amorphous Sediment 3+ /HPF (NONE SEEN); Urine Bacteria <20 /HPF (NONE SEEN); Urine Culture Reflex Order NOT NEEDED; Urine Mucus 3+ /HPF (NONE SEEN)
--- NOTE | 2019-06-30 22:23 | ER ---
Nurse's Notes [facility] Name: David Baker Age: 43 yrs Sex: Male : 1975 Arrival Date: 06/30/2019 Time: 18:59 Bed 3 Private MD: Diagnosis: Epilepsy and recurrent seizures Presentation: 06/30 18:59 Presenting complaint: EMS states: Pt had a brain in [place] 10 years ago, hasn't has a jl7 seizure in 10 years and had once yesterday and discharged home to follow up with neuro. Pt was standing in the kitchen and appeared to have another seizure, fell and hit his head, +LOC, Family thought he didn't have a pulse so did 2 rounds of CPR, Pt was unresponsive but had a bounding pulse when EMS arrived, pt became combative, gave 2 mg Ativan IM, 2 mg Ativan IVP and 5 mg Versed intranasal. Transition of care: patient was not received from another setting of care. Onset of symptoms was June 30, 2019. Risk Assessment: Do you want to hurt yourself or someone else? Patient reports no desire to harm self or others. Care prior to arrival: Restraints applied. Medication(s) given: 4 mg Ativan, 5 mg Versed IV initiated. 18 GA, in the right antecubital area. 18:59 Method Of Arrival: EMS: [place] [id number] 18:59 Acuity: REED 2 jl7 19:05 Initial Sepsis Screen: Does the patient meet any 2 criteria? RR > 20 per min. Altered rr5 Mental Status. Yes Does the patient have a suspected source of infection? No. Patient's initial sepsis screen is negative. Historical: - Allergies: 19:35 No Known Allergies; rr5 - Home Meds: 19:06 Epitol 200 mg Oral tab 1 tab every 12 hours [Active]; lamotrigine 100 mg Oral TbDL 1 jl7 tab 2 times per day [Active]; metoprolol tartrate 25 mg Oral tab 1 tab 2 times per day [Active]; pravastatin 40 mg Oral tab 1 tab once daily [Active]; trazodone 100 mg Oral tab nightly [Active]; Lexapro 20 mg Oral tab 1 tab once daily [Active]; hydrochlorothiazide 25 mg Oral tab 1 tab once daily [Active]; rosuvastatin 10 mg Oral tab 1 tab once daily [Active]; super B [Active]; One-A-Day Essential Oral tab [Active]; - PMHx: 19:06 amnnesia; encephalitis; meningitis; Seizures; 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 - Social history:: Smoking status: unknown. - Ebola Screening: : Unable to complete screening because. Screenin:23 Abuse screen: Denies threats or abuse. Denies injuries from another. Nutritional rr5 screening: No deficits noted. Tuberculosis screening: No symptoms or risk factors identified. Fall Risk Fall in past 12 months (25 points). Secondary diagnosis (15 points) seizures, IV access (20 points). Gait- Impaired (20 pts.). Mental Status- Overestimates/Forgets Limitations (15 pts.). Total Marino Fall Scale indicates High Risk Score (45 or more points). Fall prevention measures have been instituted. Side Rails Up X 2 Placed Close to Nursing Station 1:1 Attendant Assigned Family Present and informed to notify staff if the need to leave the bedside As available patient and family educated on Fall Prevention Program and Strategies. Assessment: 19:05 General: Appears distressed, uncomfortable, ill, Behavior is restless, uncooperative, 4 rr5 point soft restraint applied . 19:05 Pain: Unable to use pain scale. Patient is disoriented. Patient appears restless. rr5 Neuro: Level of Consciousness is confused, Oriented to none Moves all extremities. Full function post ictal, uncooperative, disoriented, pulling lines.. Cardiovascular: Capillary refill < 3 seconds Patient's skin is warm and dry. Respiratory: Airway is patent Respiratory effort is even, unlabored, Respiratory pattern is regular, symmetrical. GI: No signs and/or symptoms were reported involving the gastrointestinal system. : No signs and/or symptoms were reported regarding the genitourinary system. EENT: No signs and/or symptoms were reported regarding the EENT system. Derm: Skin is intact, Skin temperature is warm. Musculoskeletal: Capillary refill < 3 seconds. 19:25 Reassessment: patient is restless not obeying commands. ED provider spoke to ED rr5 provider for the conscious sedation to perform CT scan procedure. agreed and signed the consent. send to CT scan accompanied by ED provider, principal technical writer and RT. 19:51 Reassessment: pt stated pt sees Dr. Artie Carlos office [phone] pt has MRI and EEG ak1 at 0800 07/01/19.. 20:20 Reassessment: Patient appears in no apparent distress at this time. vitally stable, rr5 breathing spontaneously, oxygen support discontinue. 20:46 Reassessment: Patient appears in no apparent distress at this time. became more rr5 responsive now. answer question when asked. 21:00 Reassessment: Patient appears in no apparent distress at this time. Patient is alert, rr5 oriented x 3, equal unlabored respirations, skin warm/dry/pink. for transfer to other facility awaiting for acceptance. 21:20 Reassessment: versed drip discontinue. patient is awake, calm, obeys command. ED rr5 provider aware with order to discontinue the versed drip. 22:00 Reassessment: Patient appears in no apparent distress at this time. Patient is alert, rr5 oriented x 3, equal unlabored respirations, skin warm/dry/pink. ED provider updated the family member patient will stay here for admission. no available bed in [facility]. family member agreed for the plan of care. 23:00 Reassessment: Patient appears in no apparent distress at this time. Patient is alert, rr5 oriented x 3, equal unlabored respirations, skin warm/dry/pink. 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 awaiting for room assignment. Patient states feeling better. Patient states symptoms have improved. 23:33 Reassessment: Patient appears in no apparent distress at this time. Patient is alert, rr5 oriented x 3, equal unlabored respirations, skin warm/dry/pink. EENT: positive for tongue bite.. 07/01 00:00 Reassessment: Patient appears in no apparent distress at this time. Patient is alert, rr5 oriented x 3, equal unlabored respirations, skin warm/dry/pink. T 100.4 F Hospitalist informed with order made and carried out. 00:50 Reassessment: Patient appears in no apparent distress at this time. Patient is alert, rr5 oriented x 3, equal unlabored respirations, skin warm/dry/pink. T rechecked 99.5 F. transferred to 4th floor. awake alert , breathing spontaneously at room air. no complaints made. Patient states symptoms have improved. Vital Signs: 06/30 19:15 BP 116 / 63; Pulse 110; Resp 26; Pulse Ox 99% on R/A; rr5 20:00 BP 101 / 53; Pulse 90; Resp 19; Temp 100.1; Pulse Ox 100% on 15% Simple Mask; rr5 20:45 BP 98 / 64; Pulse 75; Resp 16; Pulse Ox 100% on R/A; Weight 138.35 kg; rr5 20:56 BP 113 / 75; Pulse 78; Resp 19 S; Pulse Ox 96% on R/A; jd3 21:51 BP 114 / 80; Pulse 84; Resp 16; Pulse Ox 99% ; rr5 23:15 BP 123 / 73; Pulse 75; Resp 18; Temp 100.3; Pulse Ox 99% ; rr5 07/01 00:00 BP 131 / 70; Pulse 90; Resp 17; Temp 100.4; Pulse Ox 100% ; rr5 00:50 BP 125 / 75; Pulse 79; Resp 19; Temp 99.5; Pulse Ox 99% ; rr5 Kenny Coma Score: 06/30 19:06 Eye Response: spontaneous(4). Verbal Response: none(1). Motor Response: withdraws from jl7 pain(4). Total: 9. 19:10 Eye Response: none(1). Verbal Response: confused(4). Motor Response: withdraws from rr5 pain(4). Total: 9. 20:30 Eye Response: spontaneous(4). Verbal Response: oriented(5). Motor Response: obeys rr5 commands(6). Total: 15. 21:00 Eye Response: spontaneous(4). Verbal Response: oriented(5). Motor Response: obeys rr5 commands(6). Total: 15. 21:51 Eye Response: spontaneous(4). Verbal Response: oriented(5). Motor Response: obeys rr5 commands(6). Total: 15. 23:15 Eye Response: spontaneous(4). Verbal Response: oriented(5). Motor Response: obeys rr5 commands(6). Total: 15. 07/01 00:00 Eye Response: spontaneous(4). Verbal Response: oriented(5). Motor Response: obeys rr5 commands(6). Total: 15. 00:50 Eye Response: spontaneous(4). Verbal Response: oriented(5). Motor Response: obeys rr5 commands(6). Total: 15. ED Course: 06/30 18:59 Patient arrived in ED. jl7 19:00 Patient has correct armband on for positive identification. Placed in gown. Bed in low rr5 position. Call light in reach. Side rails up X2. Seizure precautions initiated. court recording monitor on. Pulse ox on. NIBP on. 19:04 Triage completed. jl7 19:05 Hussain Rodrigues MD is Attending Physician. tw4 19:05 Inserted saline lock: 20 gauge in left hand, using aseptic technique. Blood collected. rr5 19:06 Arm band placed on right wrist. jl7 19:46 Head C Spine Mpr Wo Con In Process Unspecified. EDMS 20:00 EKG done, by ED staff, reviewed by Hussain Rodrigues MD. rr5 20:13 Pio Ramirez RN is Primary Nurse. rr5 20:30 Lights dimmed. Warm blanket given. Pillow given. Head of bed elevated. rr5 22:22 Concha Darby MD is Hospitalizing Provider. tw4 23:28 No provider procedures requiring assistance completed. Patient admitted, IV remains in rr5 place. intact, No redness/swelling at site. Restraints: 19:00 Non-Violent Restraint: Order obtained. Initiated on June 30, 2019 at 19:00 Unable rr5 to provide Restraint education. brought by EMS. patient is restless, confused, GCS 9/15, not obeys command. pulling lines.. Actions/Behavior observed: Confused/disoriented, has difficulty remembering/follow instructions, has impaired decision making, repeated attempts to get up from bed/chair w/o assistance, has decreased level of consciousness, unable to follow instructions, repeated attempts to remove/tamper lines/tubes/IV med devices \T\ wound dressing, Less restrictive alternatives attempted: decrease environmental stimuli, 1:1 patient care, placed near Nurse station, reoriented to location, Alternative interventions: Ineffective. Clinical justification for use: airway protection, line protection, patient safety, Mental status: agitated/restless, confused, Cognition: poor judgement, poor safety awareness, impulsive, Circulation: Within defined parameters (based on Cardiovascular assessment) Skin integrity: Within defined parameters (based on Integumentary assessment) Signs of injury related to restraint: No injuries noted. Range of Motion (ROM): declined. Hydration/Food: patient declined. Elimination/Hygiene: Patient declined. Restraint status: Side rails up x 4 Started. Soft wrist restraint (Right) Started. Soft wrist restraint (Left) Started. Soft ankle restraint (Right) Started. Soft ankle restraint (Left) Started. 21:00 Non-Violent Restraint: Criteria to discontinue restraint met:Patient no longer exhibits rr5 self injurious behaviors. Restraint Discontinued on June 30, 2019 at 21:00 Effective alternative interventions implemented: decreased environmental stimuli, placed near Nurse station, reoriented to location, family at bedside, medications evaluated, repositioned. Administered Medications: 19:15 Drug: Versed 4 mg Route: IVP; Site: left hand; rr5 19:15 Follow up: rass +1 rr5 20:15 Follow up: Response: No adverse reaction; RASS: Drowsy (-1) rr5 21:00 Follow up: Response: No adverse reaction; RASS: Alert and Calm (0) rr5 19:35 Drug: Propofol 40 mg Route: IVP; Site: left hand; rr5 19:35 Follow up: Response: RASS: Restless (+1) rr5 21:00 Follow up: Response: No adverse reaction; RASS: Alert and Calm (0) rr5 19:40 Drug: Propofol 40 mg Route: IVP; Site: left hand; rr5 19:40 Follow up: Response: RASS: Restless (+1) rr5 20:00 Follow up: Response: RASS: Drowsy (-1) rr5 21:00 Follow up: Response: No adverse reaction; RASS: Alert and Calm (0) rr5 20:10 Drug: NS 0.9% 1000 ml Route: IV; Rate: 1 bolus; Site: left hand; rr5 21:21 Follow up: Response: No adverse reaction; IV Status: Completed infusion; IV Intake: rr5 1000ml 20:20 Drug: Versed 20 mg Route: IV; Rate: 1 mg/hr; Site: left hand; rr5 21:20 Follow up: IV Status: Order to discontinue infusion; IV Intake: 1ml ; patient is awake rr5 talking to his director of corporate strategy at bedside. 21:20 Drug: Keppra 1000 mg {Note: diluted to ns 100.} Route: IV; Rate: calculated rate; Site: rr5 left hand; 22:20 Follow up: Response: No adverse reaction; IV Status: Completed infusion; IV Intake: rr5 100ml 07/01 00:00 Drug: Tylenol 650 mg Route: PO; rr5 00:29 Follow up: Response: No adverse reaction; Temperature is decreased rr5 Point of Care Testing: Blood Glucose: 06/30 19:03 Blood Glucose: 104 mg/dL; iw Ranges: Intake: 21:20 IV: 1ml; Total: 1ml. rr5 21:21 IV: 1000ml; Total: 1001ml. rr5 22:20 IV: 100ml; Total: 1101ml. rr5 Outcome: 22:22 Decision to Hospitalize by Provider. tw4 23:41 Admitted to Tele accompanied by [facility], via stretcher, room 426, with chart, Report rr5 called to chata 23:41 Condition: stable 23:41 Instructed on the need for admit. 07/01 00:54 Patient left the ED. rr5 Signatures: Dispatcher [employer] EDAlison Ellis RN ASHLEY iw Radha Rodriguez RN RN [email or web address] Davin Benson RN RN jl7 Guillaume Canales RN RN Hussain Castillo MD MD tw4 Pio Ramirez RN RN rr5 Corrections: (The following items were deleted from the chart) 06/30 23:33 19:05 EENT: No signs and/or symptoms were reported regarding the EENT system. rr5 rr5
--- NOTE | 2019-06-30 22:24 | EDPHYS ---
Physician Documentation [facility] Name: David Baker Age: 43 yrs Sex: Male : 1975 Arrival Date: 06/30/2019 Time: 18:59 Bed 3 Private MD: ED Physician Hussain Rodrigues HPI: 07/01 03:36 This 43 yrs old Male presents to ER via EMS with complaints of Seizure. tw4 03:36 The patient presents in status epilepticus, that started 10 minute(s) ago. Character of tw4 seizure(s): Loss of consciousness: the patient experienced loss of consciousness, Motor activity: generalized. Character of seizure(s): Incontinence: none, Apnea: it is not know whether or not the patient experienced apnea, Circulation: it is unknown whether or not the patient experienced a disturbance in pulse. Seizure onset: today. Context: the seizure(s) was witnessed, by no one, occurred at home. Seizure Hx: the patient has no previous seizure history. Associated injury: Head/face:. Current symptoms: confusion. The patient has not experienced similar symptoms in the past. Historical: - Allergies: 06/30 19:35 No Known Allergies; rr5 - Home Meds: 19:06 Epitol 200 mg Oral tab 1 tab every 12 hours [Active]; lamotrigine 100 mg Oral TbDL 1 jl7 tab 2 times per day [Active]; metoprolol tartrate 25 mg Oral tab 1 tab 2 times per day [Active]; pravastatin 40 mg Oral tab 1 tab once daily [Active]; trazodone 100 mg Oral tab nightly [Active]; Lexapro 20 mg Oral tab 1 tab once daily [Active]; hydrochlorothiazide 25 mg Oral tab 1 tab once daily [Active]; rosuvastatin 10 mg Oral tab 1 tab once daily [Active]; super B [Active]; One-A-Day Essential Oral tab [Active]; - PMHx: 19:06 amnnesia; encephalitis; meningitis; Seizures; 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 - Social history:: Smoking status: unknown. - Ebola Screening: : Unable to complete screening because. ROS: 07/01 03:36 Constitutional: Negative for fever, chills, and weight loss, Eyes: Negative for injury, tw4 pain, redness, and discharge, Cardiovascular: Negative for chest pain, palpitations, and edema, Respiratory: Negative for shortness of breath, cough, wheezing, and pleuritic chest pain, Abdomen/GI: Negative for abdominal pain, nausea, vomiting, diarrhea, and constipation, Back: Negative for injury and pain, MS/Extremity: Negative for injury and deformity, Skin: Negative for injury, rash, and discoloration. Neuro: Positive for altered mental status, loss of consciousness, seizure activity, Negative for dizziness, gait disturbance, headache, hearing loss, speech changes, syncope, near syncope, tingling, tinnitus, tremor, visual changes, weakness. Exam: 03:36 Head/Face: Normocephalic, atraumatic. Cardiovascular: Regular rate and rhythm with a tw4 normal S1 and S2. No gallops, murmurs, or rubs. Normal PMI, no JVD. No pulse deficits. 03:36 Chest/axilla: Normal chest wall appearance and motion. Nontender with no deformity. No lesions are appreciated. Respiratory: Lungs have equal breath sounds bilaterally, clear to auscultation and percussion. No rales, rhonchi or wheezes noted. No increased work of breathing, no retractions or nasal flaring. Abdomen/GI: Soft, non-tender, with normal bowel sounds. No distension or tympany. No guarding or rebound. No evidence of tenderness throughout. Back: No spinal tenderness. No costovertebral tenderness. Full range of motion. MS/ Extremity: Pulses equal, no cyanosis. Neurovascular intact. Full, normal range of motion. Neuro: Awake and alert, GCS 15, oriented to person, place, time, and situation. Cranial nerves II-XII grossly intact. Motor strength 5/5 in all extremities. Sensory grossly intact. Cerebellar exam normal. Normal gait. 03:36 Constitutional: The patient appears agitated, in obvious distress, mildly distressed, restless, uncomfortable. Vital Signs: 12 19:15 BP 116 / 63; Pulse 110; Resp 26; Pulse Ox 99% on R/A; rr5 20:00 BP 101 / 53; Pulse 90; Resp 19; Temp 100.1; Pulse Ox 100% on 15% Simple Mask; rr5 20:45 BP 98 / 64; Pulse 75; Resp 16; Pulse Ox 100% on R/A; Weight 138.35 kg; rr5 20:56 BP 113 / 75; Pulse 78; Resp 19 S; Pulse Ox 96% on R/A; jd3 21:51 BP 114 / 80; Pulse 84; Resp 16; Pulse Ox 99% ; rr5 23:15 BP 123 / 73; Pulse 75; Resp 18; Temp 100.3; Pulse Ox 99% ; rr5 12 00:00 BP 131 / 70; Pulse 90; Resp 17; Temp 100.4; Pulse Ox 100% ; rr5 00:50 BP 125 / 75; Pulse 79; Resp 19; Temp 99.5; Pulse Ox 99% ; rr5 Kenny Coma Score: 06/30 19:06 Eye Response: spontaneous(4). Verbal Response: none(1). Motor Response: withdraws from jl7 pain(4). Total: 9. 19:10 Eye Response: none(1). Verbal Response: confused(4). Motor Response: withdraws from rr5 pain(4). Total: 9. 20:30 Eye Response: spontaneous(4). Verbal Response: oriented(5). Motor Response: obeys rr5 commands(6). Total: 15. 21:00 Eye Response: spontaneous(4). Verbal Response: oriented(5). Motor Response: obeys rr5 commands(6). Total: 15. 21:51 Eye Response: spontaneous(4). Verbal Response: oriented(5). Motor Response: obeys rr5 commands(6). Total: 15. 23:15 Eye Response: spontaneous(4). Verbal Response: oriented(5). Motor Response: obeys rr5 commands(6). Total: 15. 07/01 00:00 Eye Response: spontaneous(4). Verbal Response: oriented(5). Motor Response: obeys rr5 commands(6). Total: 15. 00:50 Eye Response: spontaneous(4). Verbal Response: oriented(5). Motor Response: obeys rr5 commands(6). Total: 15. Procedures: 03:36 Moderate sedation: Pre-procedure assessment: the patient has been NPO an unknown amount tw4 of time prior to arrival, ASA physical classification: II - mild/mod systemic disease that does not interfere with daily routines, Airway assessment: able to maintain airway, can open mouth without difficulty, Mallampati classification of tongue size: II - faucial pillars and soft palate can be visualized, but uvula is masked by the base of the tongue, Monitoring during procedure: security monitor, continuous pulse oximetry, nurse at bedside at all times, Medications employed: Propofol, Post-procedure assessment: the patient is mildly sedated, a reversal agent was not used. MDM: 06/30 19:05 Patient medically screened. tw4 07/01 03:36 Differential diagnosis: cerebral vascular accident, drug overdose. Data reviewed: vital tw4 signs, nurses notes. Data interpreted: Pulse oximetry: Interpretation: normal. Counseling: I had a detailed discussion with the patient and/or guardian regarding: the historical points, exam findings, and any diagnostic results supporting the discharge/admit diagnosis. Medication response: versed. Response to treatment: the patient's symptoms have markedly improved after treatment, and as a result, I will admit patient. Physician consultation: Concha Darby MD regarding admission, to the telemetry unit. and will see patient in inpatient room. Admission orders: after a detailed discussion of the patient's condition and case, the admit orders are written by me. Other consultation: D/W Dr Alas Neurology will see in am, will need MRI, also D/W Dr Carlos pt's personal Neurologist agrees with treatment plan. 06/30 19:03 Order name: Acetaminophen; Complete Time: 19:49 iw 06/30 19:03 Order name: Basic Metabolic Panel; Complete Time: 19:49 iw 06/30 19:49 Interpretation: Normal except: GLUC 109; GFR 54; CRE 1.43; BUN 20. tw4 06/30 19:03 Order name: CBC with Diff; Complete Time: 19:49 iw 06/30 19:50 Interpretation: Normal except: WBC 12.2; PLT 223. tw4 06/30 19:03 Order name: ETOH Level; Complete Time: 19:49 iw 06/30 19:03 Order name: Hepatic Function; Complete Time: 19:49 iw 06/30 19:50 Interpretation: Abnormal: AST 59; ALT 79; GLOB 3.9; A/G 1.0. tw4 06/30 19:03 Order name: PT-INR; Complete Time: 19:49 iw 06/30 19:03 Order name: Ptt, Activated; Complete Time: 19:49 iw 06/30 19:03 Order name: Salicylate; Complete Time: 20:31 iw 06/30 19:03 Order name: Urine Drug Screen; Complete Time: 20:31 iw 06/30 19:15 Order name: Glucose, Ancillary Testing; Complete Time: 19:49 EDID 06/30 19:33 Order name: Urine Dipstick--Ancillary (enter results); Complete Time: 19:49 6 06/30 19:50 Interpretation: Normal except: UPROT 3+; UBLD 2+; USPGR >1.030. tw4 / 19:33 Order name: Urine Microscopic Only 6 06/30 22:58 Order name: CKMB Creatine Kinase MB [facility] 06/30 22:59 Order name: CKMB Creatine Kinase MB [facility] 06/30 19:03 Order name: EKG; Complete Time: 19:12 06/30 19:43 Order name: Head C Spine Mpr Wo Con; Complete Time: 20:31 [facility] 06/30 22:59 Order name: Creatine Phosphokinase [facility] 06/30 22:59 Order name: Creatine Phosphokinase [facility] 06/30 22:59 Order name: Lipid Profile [facility] 06/30 22:59 Order name: Lipid Profile [facility] 06/30 22:59 Order name: Troponin I [facility] 06/30 22:59 Order name: Troponin I [facility] 06/30 19:03 Order name: EKG - Nurse/Tech; Complete Time: 20:24 06/30 19:03 Order name: IV Saline Lock; Complete Time: 20:35 06/30 19:03 Order name: Labs collected and sent; Complete Time: 20:35 06/30 19:03 Order name: Urine Dipstick-Ancillary (obtain specimen); Complete Time: 20:35 06/30 21:28 Order name: Restraint:Non-Violent; Complete Time: 21:28 rr5 06/30 22:03 Order name: Moderate Sedation; Complete Time: 22:03 rr5 06/30 22:58 Order name: NPO EDID 06/30 22:58 Order name: NPO EDMS 06/30 22:58 Order name: NPO EDMS EC:40 Rate is 79 beats/min. Rhythm is regular. [place] interval is normal. QT interval is normal. tw4 No Q waves. T waves are Normal. No ST changes noted. Clinical impression: Normal ECG. Interpreted by me. Reviewed by me. Administered Medications: 06/30 19:15 Drug: Versed 4 mg Route: IVP; Site: left hand; rr5 19:15 Follow up: rass +1 rr5 20:15 Follow up: Response: No adverse reaction; RASS: Drowsy (-1) rr5 21:00 Follow up: Response: No adverse reaction; RASS: Alert and Calm (0) rr5 19:35 Drug: Propofol 40 mg Route: IVP; Site: left hand; rr5 19:35 Follow up: Response: RASS: Restless (+1) rr5 21:00 Follow up: Response: No adverse reaction; RASS: Alert and Calm (0) rr5 19:40 Drug: Propofol 40 mg Route: IVP; Site: left hand; rr5 19:40 Follow up: Response: RASS: Restless (+1) rr5 20:00 Follow up: Response: RASS: Drowsy (-1) rr5 21:00 Follow up: Response: No adverse reaction; RASS: Alert and Calm (0) rr5 20:10 Drug: NS 0.9% 1000 ml Route: IV; Rate: 1 bolus; Site: left hand; rr5 21:21 Follow up: Response: No adverse reaction; IV Status: Completed infusion; IV Intake: rr5 1000ml 20:20 Drug: Versed 20 mg Route: IV; Rate: 1 mg/hr; Site: left hand; rr5 21:20 Follow up: IV Status: Order to discontinue infusion; IV Intake: 1ml ; patient is awake rr5 talking to his hot stone setter at bedside. 21:20 Drug: Keppra 1000 mg {Note: diluted to ns 100.} Route: IV; Rate: calculated rate; Site: rr5 left hand; 22:20 Follow up: Response: No adverse reaction; IV Status: Completed infusion; IV Intake: rr5 100ml 07/01 00:00 Drug: Tylenol 650 mg Route: PO; rr5 00:29 Follow up: Response: No adverse reaction; Temperature is decreased rr5 Point of Care Testing: Blood Glucose: 06/30 19:03 Blood Glucose: 104 mg/dL; iw Ranges: Critical Glucose Levels:Adult <50 mg/dl or >400 mg/dl <40 mg/dl or >180 mg/dl Disposition: 06/30/19 22:22 Hospitalization ordered by Concha Darby for Inpatient Admission. Preliminary diagnosis is Epilepsy and recurrent seizures. - Bed requested for Telemetry/MedSurg (Inpatient). - Status is Inpatient Admission. rr5 - Condition is Stable. - Problem is new. - Symptoms have improved. UTI on Admission? No Signatures: Dispatcher [employer] EDID Mirella Warenr, RN RN dw Alison Cortez, RN RN iw Davin Benson, RN RN jl7 Hussain Rodrigues MD MD tw4 Pio Ramirez RN RN rr5 Corrections: (The following items were deleted from the chart) 19:43 19:40 Head Brain Wo Cont ordered. [facility] 23:05 22:22 Hospitalization Ordered by Concha Darby MD for Inpatient Admission. Preliminary dw diagnosis is Epilepsy and recurrent seizures. Bed requested for Telemetry/MedSurg (Inpatient). Status is Inpatient Admission. Condition is Stable. Problem is new. Symptoms have improved. UTI on Admission? No. tw4 07/01 00:54 06/30 23:05 06/30/2019 22:22 Hospitalization Ordered by Concha Darby MD for Inpatient rr5 Admission. Preliminary diagnosis is Epilepsy and recurrent seizures. Bed requested for Telemetry/MedSurg (Inpatient). Status is Inpatient Admission. Condition is Stable. Problem is new. Symptoms have improved. UTI on Admission? No. dw
[2019-06-30] MEDS ORDERED: NA CHLORIDE 0.9% 1,000 ML IV SCH (23:00)
[2019-07-01] MEDS ORDERED: ACETAMINOPHEN 325 MG TABLET ONE
[2019-07-01 01:23] VITALS: BMI 37.4
--- NOTE | 2019-07-01 04:31 | P.HP ---
Certification for Inpatient Patient admitted to: Inpatient With expected LOS: >2 Midnights Patient will require the following post-hospital care: None Practitioner: I am a practitioner with admitting privileges, knowledge of patient current condition, hospital course, and medical plan of care. 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 per the patients the patient had a seizure on friday and visited the ER he was evaluated by tele medicine and discharged to follow up with his neurologist in [place] [facility]. however, friday he developed another seizure cincerning for status and requiring versad and ativan by EMS. he was post ictal on initial ED evaluation. due to his personal neurologist at [facility] unable to accept him as a transfer 2/2 lack of beds, he is being admitted here for neuro eval and MRI brain. he denies fever, chills, cp, sob, n/v/peterson, dizziness, change in urine/ bowel, back/abd pain, lower ext swelling. he does report increase in weight gain. he reports hx/o former tobacco use, denies drug and etoh use. Allergies No Known Allergies Allergy (Verified 07/01/19 01:24) Home medications list reviewed: Yes - Past Medical/Surgical History Diabetic: No Past Surgical History: Reviewed- Non-Contributory - Social History Smoking Status: Former smoker Alcohol use: No CD- Drugs: No Review of Systems General: Weakness, Malaise Eyes: Unremarkable ENT: Unremarkable Respiratory: Unremarkable Cardiovascular: Unremarkable Gastrointestinal: Unremarkable Genitourinary: Unremarkable Musculoskeletal: Unremarkable Integumentary: Unremarkable Neurological: Seizures, As per HPI Physical Examination - Vital Signs Temperature: 99.3 F Blood Pressure: 134/69 Pulse: 79 Respirations: 20 Pulse Ox (%): 97 - Physical Exam General: Alert, In no apparent distress, Oriented x3, Other (appears weak but interactive and conversational ) HEENT: Atraumatic, Other (dry mucous membranes/bruising and laceration of the tongue) Neck: Supple Respiratory: Normal air movement Cardiovascular: No edema, Normal pulses, Regular rate/rhythm, No murmurs Capillary refill: <2 Seconds Gastrointestinal: Normal bowel sounds, Soft and benign, Non-distended, No rebound, No guarding Musculoskeletal: No clubbing, No swelling, No erythema, No warmth Integumentary: No rashes, No breakdown Neurological: Normal speech, Normal strength at 5/5 x4 extr, Cranial nerves 3- 12 intact, Other (gait not tested ) External genitalia: Deferred Rectal: Deferred - Studies Laboratory Data (last 24 hrs) 06/30/19 19:10: PT 11.4, INR 0.96, APTT 28.9 06/30/19 19:10: WBC 12.2 H D, Hgb 16.5, Hct 48.9, Plt Count 223 D 06/30/19 19:10: Sodium 142, Potassium 4.1, BUN 20 H, Creatinine 1.43 H, Glucose 109 H, Total Bilirubin 0.7, AST 59 H, ALT 79 H, Alkaline Phosphatase 93 Assessment and Plan - Plan 43yoM admitted w/ # seizure disorder - new onset breakthrough seizure w/ h/o TBI neuro eval ordered tele, o2 per protocol obtain lamictal lvl, tsh, a1c, lipid lvl and cbc/cmp UDS screen, CE eval # JUAN R RT to set up CPAP monitor o2 lvls # obesity - large neck and abdominal girth counsoled on weight loss and dietary adjustments # elevated lft - mild repeat if elevated consider RUQ US. #HTN monitor BP and restart home medications after medication reconciliation DVT ppx - SCD - Advance Directives Does patient have a Living Will: No Does patient have a Durable POA for Healthcare: No - Code Status/Comfort Care Code Status Assessed: Yes Code Status: Full Code
[2019-07-01] MEDS ORDERED: ACETAMINOPHEN 325 MG TABLET PO PRN (04:39)
[2019-07-01 05:52] LABS: Albumin 3.5 g/dL (3.4-5.0); Bilirubin Total 0.8 mg/dL (0.2-1.0); Potassium 3.2 mmol/L (3.5-5.1); Protein, Total 6.8 g/dL (6.4-8.2); Thyroid Stimulating Hormone 1.05 uIU/mL (0.360-3.740)
[2019-07-01] MEDS: HYDROCODONE/APAP 5/325 MG TAB PO PRN ×2 (05:53→20:53)
[2019-07-01 05:57] LABS: CKMB Creatine Kinase MB 11.4 ng/mL (0.3-3.6); Troponin I 0.55 ng/mL (0.0-0.045)
[2019-07-01 06:09] LABS: Basophils % 0.3 % (0-1.3); Hematocrit 42.8 % (39.6-49.0); Lymphocytes % 17.3 % (15.3-44.8); MPV 9.7 fL (7.6-11.3); RBC Red Blood Cell Count 4.79 M/uL (4.33-5.43)
[2019-07-01] MEDS: NA CHLORIDE 0.9% 1,000 ML IV SCH ×3 (08:50→15:00)
[2019-07-01] MEDS ORDERED: lamoTRIgine 100 MG TAB PO SCH (09:00)
[2019-07-01] MEDS ORDERED: DOCUSATE NA 100 MG CAP PO PRN (09:00)
[2019-07-01] MEDS ORDERED: carBAMazepine 200 MG TAB PO PRN (12:27)
[2019-07-01] MEDS: lamoTRIgine 100 MG TAB PO SCH ×2 (14:29→20:48)
--- NOTE | 2019-07-01 14:52 | RAD REPORT ---
EXAM DESCRIPTION: MRI - Brain W/Wo Cont - 07/01/2019 2:25 pm CLINICAL HISTORY: Seizure COMPARISON: CT head June 30 TECHNIQUE: Sagittal and axial T1-weighted images were obtained. Axial PD/heavily T2-weighted and T2- FLAIR images were obtained along with axial DWI/ADC mapping sequences. Coronal heavily T2 weighted s equence obtained. Axial and coronal post-contrast T1-weighted images were also obtained. A 20 ml Mul tihance contrast following utilized. FINDINGS: No intracranial hemorrhage, soft tissue mass or acute infarction. Approximately 5 centimet er area of hypointense T1 and hyperintense T2 signal is present filling most of the left middle crani al fossa. This is most likely cystic encephalomalacia of the temporal lobe from prior ischemic or tra umatic insult. Arachnoid cyst is a lesser consideration. Compensatory enlargement of the temporal hor n lateral ventricle would support volume loss. No suspicious enhancement in this region. No solid mas s component. This area could be a trigger for seizures. No other focal brain parenchymal process seen. There is no edema or shift of midline structures. No e xtra-axial fluid collections. Talbert-matter/white matter junction is preserved. Signal voids are seen as a normal finding in the major intracranial vessels. Post-contrast images show normal enhancement. No dural thickening. Mastoid air cells and paranasal sinuses are clear. IMPRESSION: Negative contrast enhanced MRI of the Brain for acute finding Cystic encephalomalacia changes in the middle cranial fossa involving the temporal lobe. No enhancing nodule or septation. No suspicious finding in this region though a trigger for seizure could be poss ible.
--- NOTE | 2019-07-01 16:34 | P.PN ---
Date of Service: 07/01/19 Patient seen and examined. No more seizure episodes since hospitalization. Status post loading dose Keppra in the ED MRI of the brain result reviewed reports no changes from prior images. Case discussed with Dr. Alas. He recommended to increase Lamictal to 100 mg b.i.d. and increase Tegretol to 200 mg b.i.d. Elevated CK and noted an likely secondary to seizures. Neuro checks EEG per Dr. Alas. Other medications resumed Diet resumed. I called to discuss his MRI results with Dr. Carlos of [facility]. I spoke to his bilingual medical assistant and waiting for a call back to discuss patient's MRI result. Check daily serial CK levels. Correct hypokalemia.
[2019-07-01] MEDS ORDERED: POTASSIUM CL SA 10 MEQ TAB PO ONE (17:00)
[2019-07-01] MEDS: METOPROLOL TAR 25 MG TAB PO SCH (20:48)
[2019-07-01] MEDS ORDERED: HOME MED 1 EA UNK (Pravastatin Sodium [Pravastatin Sodium] 40 MG) PO SCH (21:00)
[2019-07-01] MEDS ORDERED: ROSUVASTATIN 10 MG TAB PO SCH (21:00)
[2019-07-01] MEDS ORDERED: carBAMazepine 200 MG TAB PO SCH (21:00)
[2019-07-01] MEDS ORDERED: TRAZODONE 50 MG TABLET PO SCH (21:00)
[2019-07-01] MEDS ORDERED: DIAZEPAM PR PRN (22:47)
--- NOTE | 2019-07-01 22:58 | EKG ---
Test Date: 2019-06-30 Test Time: 20:02:18 [employer] [place]: RR MEASUREMENT RESULTS: Intervals: Rate: 79 AR: 132 QRSD: 102 QT: 372 QTc: 426 [place]: P: 52 AR: 132 QRS: 31 T: 10 INTERPRETIVE STATEMENTS: Normal sinus rhythm Normal ECG Compared to ECG 06/29/2019 15:11:10 No significant changes Electronically Signed On 07-01-19 22:56:58 [employer] INSPECT[employer] by Kvng Shaffer
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
[2019-07-01] MEDS: levETIRAcetam 500 MG TAB PO SCH (23:27)
[2019-07-02] MEDS: HYDROCODONE/APAP 5/325 MG TAB PO PRN (04:23)
[2019-07-02 05:19] LABS: Absolute Lymphocytes (CBC) 2.6 K/uL (0.7-4.9); Basophils % 0.5 % (0-1.3); Hematocrit 42.4 % (39.6-49.0); Lymphocytes % 30.2 % (15.3-44.8); MPV 9.1 fL (7.6-11.3); RBC Red Blood Cell Count 4.66 M/uL (4.33-5.43)
[2019-07-02 05:50] LABS: Potassium 4.5 mmol/L (3.5-5.1)
[2019-07-02 08:20] VITALS: O2SAT 97
[2019-07-02] MEDS: METOPROLOL TAR 25 MG TAB PO SCH (08:22)
[2019-07-02] MEDS: levETIRAcetam 500 MG TAB PO SCH (08:23)
[2019-07-02] MEDS: lamoTRIgine 100 MG TAB PO SCH (08:34)
[2019-07-02] MEDS ORDERED: VITAMIN B COMPLEX 1 CAP PO SCH (09:00)
[2019-07-02] MEDS ORDERED: MULTIVITAMIN TAB PO SCH (09:00)
[2019-07-02] MEDS ORDERED: ESCITALOPRAM 20 MG TAB PO SCH (09:00)
[2019-07-02] MEDS ORDERED: hydroCHLOROthiazide 25 MG TAB PO SCH (09:00)
[2019-07-02 12:28] VITALS: BP 135/76; TEMP 98
--- NOTE | 2019-07-02 13:34 | P.DS ---
Admission Date: 06/30/19 Discharge Date: 07/02/19 Disposition: ROUTINE DISCHARGE Discharge Condition: GOOD Reason for Admission: breakthrough seizure Consultations: Neurology Procedures: None - Problems (1) Seizures Current Visit: Yes Status: Acute (2) Acute renal failure Current Visit: Yes Status: Acute (3) Elevated CK Current Visit: Yes Status: Acute Brief History of Present Illness: 43-year-old gentleman with a history of encephalitis complicated by seizures in the past, presented to the ED with a complaint of seizure episode. According to patient and family he has not had a seizure for about 10-11 years until about a few days ago. He was in the emergency department 2 days prior due to a seizure episode, he was advised to increase Lamictal to 100 mg twice a day. Patient took an extra dose of Lamictal but experienced a seizure episode the following day and presented to the ED. Of note CT head done in the ED reported 5 cm encephalomalacia in the left middle cranial fossa. Patient was given Versed, propofol and loading dose dose of Keppra and admitted for further management of breakthrough seizures. Noted his serum creatinine in the ED was elevated above baseline and his CK level also elevated to 4000. Hospital Course: Patient admitted to the medical floor, he was evaluated by neurology-Dr. Alas. Lamictal was increased to 100 mg twice a day. Patient was also placed on Keppra 500 mg b.i.d. he did not have any further seizure episode during the hospital stay. Elevated CK level was treated with IV fluids. Levels trended down to 3000. KEY[place] also resolved with IV hydration. Patient has been stable with no more seizures. He is deemed clinically stable for discharge. Patient is discharged with current dose of Lamictal 100 mg b.i.d. and Keppra 500 mg b.i.d. he has also prescribed rectal diazepam to use p.r.n. for prolonged or back to back seizures. He will follow with his neurologist Dr. Carlos next week. I also called and updated his primary care physician Dr. Curiel and recommended his is serum creatinine kinase and renal function be checked next week. Dr. Curiel agreed to make arrangements for these tests to be done next week. He has been provided his MRI results and CD of his head images to be reviewed by Dr. Carlos. Vital Signs/Physical Exam: Temp Pulse Resp BP Pulse Ox 98.0 F 58 17 135/76 95 12/06/19 12:00 07/02/19 12:00 07/02/19 12:00 07/02/19 12:00 07/02/19 12:00 General: Alert, In no apparent distress, Oriented x3 HEENT: PERRLA, Mucous membr. moist/pink, Sclerae nonicteric Neck: Supple, JVD not distended Respiratory: Clear to auscultation bilaterally, Normal air movement Cardiovascular: No edema, Regular rate/rhythm, Normal S1 S2 Gastrointestinal: Normal bowel sounds, Soft and benign, Non-distended, No tenderness Musculoskeletal: No swelling Integumentary: No rashes Neurological: Normal speech, Normal strength at 5/5 x4 extr Laboratory Data at Discharge: WBC 8.6 K/uL (4.3-10.9) D 07/02/19 04:49 Hgb 14.5 g/dL (13.6-17.9) 07/02/19 04:49 Hct 42.4 % (39.6-49.0) 07/02/19 04:49 Plt Count 178 K/uL (152-406) 07/02/19 04:49 PT 11.4 SECONDS (9.5-12.5) 06/30/19 19:10 INR 0.96 06/30/19 19:10 APTT 28.9 SECONDS (24.3-36.9) 06/30/19 19:10 Sodium 143 mmol/L (136-145) 07/02/19 04:49 Potassium 4.5 mmol/L (3.5-5.1) 07/02/19 04:49 BUN 15 mg/dL (7-18) 07/02/19 04:49 Creatinine 1.06 mg/dL (0.55-1.3) 07/02/19 04:49 Glucose 102 mg/dL (74-106) 07/02/19 04:49 Total Bilirubin 0.8 mg/dL (0.2-1.0) 07/01/19 03:44 AST 84 U/L (15-37) H 07/01/19 03:44 ALT 69 U/L (12-78) 07/01/19 03:44 Alkaline Phosphatase 81 U/L (45-117) 07/01/19 03:44 Troponin I 0.55 ng/mL (0.0-0.045) H* 07/01/19 03:44 Triglycerides 117 mg/dL (<150) 07/01/19 03:44 Cholesterol 156 mg/dL (<200) 07/01/19 03:44 HDL Cholesterol 38 mg/dL (40-60) L 07/01/19 03:44 Cholesterol/HDL Ratio 4.11 07/01/19 03:44 Home Medications: Escitalopram [Lexapro*] 20 mg PO DAILY 07/01/19 Ferrous Fumarate/Vit Bcomp&C [Super B-Complex Caplet] 1 each PO DAILY 07/01/19 Metoprolol Tartrate 25 mg PO BID* 07/01/19 Multivitamin [Daily Multiple Vitamin] 1 each PO DAILY 07/01/19 Pravastatin Sodium 40 mg PO BEDTIME 07/01/19 Trazodone HCl 100 mg PO BEDTIME 07/01/19 carBAMazepine [Tegretol*] 200 mg PO PRN PRN 07/01/19 hydroCHLOROthiazide [Hydrochlorothiazide] 25 mg PO DAILY 07/01/19 Docusate [Colace Cap*] 100 mg PO DAILY PRN #30 cap 07/02/19 diazePAM [Valium Suppository] 10 mg [place] PRN PRN #30 supp 07/02/19 lamoTRIgine [Lamictal*] 100 mg PO BID #60 tab 07/02/19 levETIRAcetam [Keppra*] 500 mg PO BID #60 tab 07/02/19 New Medications: diazePAM [Valium Suppository] 10 mg [place] PRN PRN #30 supp PRN Reason: prolonged or back to back seiz Docusate [Colace Cap*] 100 mg PO DAILY PRN #30 cap PRN Reason: Constipation lamoTRIgine [Lamictal*] 100 mg PO BID #60 tab levETIRAcetam [Keppra*] 500 mg PO BID #60 tab Diet: AHA Activity: No driving Followup: Usama Curiel DO [ACTIVE - CAN ADMIT] - 1 Week Time spent managing pt's care (in minutes): 42
[2019-07-02] MEDS ORDERED: ATORVASTATIN 10 MG TAB PO SCH (21:00)
== END 2019-07-02 14:19 | disposition home or self-care (01) | DRG 101 ==
LOC: ER 18:53 → ERHOLD 23:12 → 4TH 23:56
PROVIDERS: ADMIT Internal Medicine; ATTEND Internal Medicine
DX: G40.209 Localization-related (focal) (partial) symptomatic epilepsy and epileptic syndromes with complex partial seizures, not intractable, without status epilepticus (principal); N17.9 Acute kidney failure, unspecified; G93.89 Other specified disorders of brain; R79.89 Other specified abnormal findings of blood chemistry; I10 Essential (primary) hypertension; E66.9 Obesity, unspecified; Z68.37 Body mass index [BMI] 37.0-37.9, adult
CPT/HCPCS: 36415; 70450; 70553; 71045; 72125; 80048; 80053; 80061; 80076; 80307; 80320; 80329; 81003; 81015; 82550; 82553; 82947; 83036; 83735; 84443; 84484; 85025; 85610; 85730; 93005; 96365; 96367; 96375; 97116; 97161; 99285; A9577; J1953; J2250; J2704; J7030; J7040